=== PATIENT | male | born 1990 | race Caucasian/White ===

== ENCOUNTER 2019-06-06 12:22 | Emergency (ER) | payer BC ==
[~2019-06-06] VITALS: Ht 182.9 cm; Wt 63.5 kg
--- NOTE | ~2019-06-06 | EMS ---
[address] [address] EMS Patient Care Report Name: DAGMAR ROYAL Room #: REG RAYMOND Grace#: [id number] Admission: 06/06/19 Attend Phys: Discharge: Date of : [birth year] Report #: [id number] THIS REPORT FOR: //name// Report Transmitted: 06/06/2019 12:49 EMS Care Summary [place], [place]/[facility] Incident [id number] @ 06/06/2019 11:45 Incident Location [address] [place], [place] [id number] Patient DAGMAR ROYAL Male, 29 Years 1990 Patient Address [address] [address] Patient History None Reported, Patient Allergies No known allergies, Patient Medications None Reported, Chief Complaint SEIZURE Disposition Transported No Lights/[place] Dispatch Reason Convulsions/Seizure Transported To [facility] Narrative PT FOUND SITTING ON STEPS IN FRONT OF HOUSE WITH FAMILY. FAMILY STATES THEY FOUND PT AHVING A SEIZURE AND THAT PT HAD HIT HIS HEAD. FAMILY STATES THAT PT HAD BEEN ON A 3 DAY EDWARD AND STOPPED DRINKING SUDDENLY. PT IS IN TYPICAL POTICTAL STATE. PT NOTED TO BE COUGHING- SURGICAL MASK GIVEN TO PT TO WEAR. [address] [address] EMS Patient Care Report Name: DAGMAR ROYAL Room #: REG ER Sanjay#: [id number] Admission: 06/06/19 Attend Phys: Discharge: Date of : [birth year] Report #: [id number] TRANSPORTED WTIHOUT INCIDENT. Initial Vitals @12:04P: 100,R: 18,BP: 109/85,Pain: 4/10,GCS: 14,Revised Trauma: 12, Assessments @11:54MENTAL:Confused,SKIN:No Abnormalities,HEENT:LUNG SOUNDS:ABDOMEN:PELVIS//GI:EXTREMITIES:PULSE:NEURO:No Abnormalities, Impression Seizures Procedures @11:54ALS AssessmentResponse: UnchangedSucceeded Timeline 11:44,Call Received 11:44,Dispatch Notified 11:45,Dispatched 11:46,En Route 11:53,On Scene 11:54,At Patient 11:54,ALS Assessment,Response: UnchangedSucceeded, 12:04,BP: 109/85 M,PULSE: 100,RR: 18 R,SPO2: Ox,ETCO2: ,BG: ,PAIN: 4,GCS: 14, 12:05,Depart Scene 12:16,At Destination 12:29,Call Closed Disclaimer [email or web address] Copyright 2020 [employer] This EMS Care Summary contains data elements from the applicable legal record (which may be displayed differently). It is designed to provide pertinent information for the following purposes: continuity of care, clinical quality, and state data reporting. The complete legal record is available to ED staff and administrators of the receiving hospital in [employer]'s Patient Tracker. All data is provided "as is."
[2019-06-06 12:45] LABS: ABSOLUTE NEUTROPHILS 10.4 thou/uL (1.4-8.2); BASOPHILS 0.2 % (0.0-2.0); EOSINOPHILS 0.3 % (0.0-3.0); HEMATOCRIT 47.1 % (42.0-52.0); HEMOGLOBIN 15.6 gm/dL (14.0-18.0); LYMPHOCYTES 13.2 % (24.0-44.0); MCH 32.8 pg (26.0-34.0); MCHC 33.2 g/dL (28.0-37.0); MCV 98.6 fL (80.0-100.0); MONOCYTES 6.7 % (1.0-8.0); PLATELET COUNT 164 thou/uL (150-400); POLYS 79.6 % (36.0-66.0); RBC 4.77 mil/uL (4.50-6.00); RDW 15.3 % (10.5-14.5)
[2019-06-06] MEDS ORDERED: NOHOMEMEDICATIONS (12:47)
[2019-06-06 12:54] LABS: CREATININE 1.3 mg/dL (0.7-1.3); POTASSIUM 4.1 mmol/L (3.5-5.1)
[2019-06-06 13:00] LABS: ALBUMIN 4.3 g/dL (3.4-5.0); MAGNESIUM 1.8 mg/dL (1.8-2.4); TOTAL BILIRUBIN 0.8 mg/dL (<0.1-1.0); TOTAL PROTEIN 8.7 g/dL (6.4-8.2)
[2019-06-06 13:01] LABS: URINE BLOOD 1+ (Negative); URINE CLARITY CLEAR; URINE COLOR YELLOW; URINE GLUCOSE-RANDOM* NEGATIVE (Negative); URINE KETONES 1+ (Negative); URINE LEUKOCYTES-REFLEX NEGATIVE (Negative); URINE NITRITE-REFLEX NEGATIVE (Negative); URINE PROTEIN (DIPSTICK) 2+ (Negative); URINE SPECIFIC GRAVITY >= 1.030 (1.005-1.035)
[2019-06-06 13:10] LABS: AMP/METHAMP Negative (Negative); BARBITURATES Negative (Negative); BENZODIAZEPINES Negative (Negative); COCAINE Negative (Negative); METHADONE Negative (Negative); OPIATES Negative (Negative); PCP Negative (Negative)
[2019-06-06 13:21] LABS: ICTOTEST (BILI CONFIRMATORY) Negative (Negative); URINE BILIRUBIN NEGATIVE (Negative)
[2019-06-06 13:24] LABS: BACTERIA-REFLEX 1-9 Few /HPF (None Seen); CASTS None Seen /LPF (None Seen); CRYSTALS None Seen /LPF (None Seen); HYALINE CASTS 0-3 Few /LPF (None Seen); SQUAMOUS None Seen /LPF (0-3); URINE RBC None Seen /HPF (0-2); URINE WBC-REFLEX 0-5 Rare /HPF (0-5)
[2019-06-06 15:09] VITALS: BP 132/85
== END 2019-06-06 15:10 | disposition home or self-care (01) ==
LOC: ER 12:22
PROVIDERS: Physician Assistant
DX: S01.511A Laceration without foreign body of lip, initial encounter (principal); S01.81XA Laceration without foreign body of other part of head, initial encounter; F17.210 Nicotine dependence, cigarettes, uncomplicated; Z23 Encounter for immunization; W18.39XA Other fall on same level, initial encounter; Y93.89 Activity, other specified; Y92.89 Other specified places as the place of occurrence of the external cause; Y99.8 Other external cause status

== ENCOUNTER 2019-06-13 08:46 | Emergency (ER) | payer OTHER ==
[~2019-06-13] VITALS: Ht 182.9 cm; Wt 63.5 kg
[~2019-06-13 08:46] MED LIST: NOHOMEMEDICATIONS
[2019-06-13 08:49] VITALS: BP 138/81
== END 2019-06-13 09:24 | disposition home or self-care (01) ==
LOC: ER 08:46
DX: S01.511D Laceration without foreign body of lip, subsequent encounter (principal); S01.81XD Laceration without foreign body of other part of head, subsequent encounter; F17.210 Nicotine dependence, cigarettes, uncomplicated; X58.XXXD Exposure to other specified factors, subsequent encounter